=== PATIENT | male | born 1970 | race Caucasian/White ===

== ENCOUNTER 2019-01-07 14:10 | Emergency (ER) | payer OTHER ==
[~2019-01-07] VITALS: Ht 177.8 cm; Wt 121.1 kg
[2019-01-07 14:30] VITALS: Ht 177.8 cm; Wt 121.1 kg
[2019-01-07 15:01] VITALS: BP 160/88
== END 2019-01-07 15:01 | disposition home or self-care (01) ==
LOC: ED 14:10
DX: G51.0 Bell's palsy (principal); F17.210 Nicotine dependence, cigarettes, uncomplicated; I10 Essential (primary) hypertension; E11.9 Type 2 diabetes mellitus without complications; Z88.1 Allergy status to other antibiotic agents; Z71.6 Tobacco abuse counseling
CPT/HCPCS: 99406; J7512